=== PATIENT | female | born 1970 | race Caucasian/White ===

== ENCOUNTER 2018-08-19 19:54 | Emergency (ER) | payer BC, SELFPAY ==
[2018-08-19 20:03] VITALS: BP 141/94; PULSE 109; RESP 16; TEMP 37.1; O2SAT 99
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
[2018-08-19] MEDS: Lidocaine 5% Patch 1 PATCH TP (21:04)
--- NOTE | 2018-08-20 10:32 | PDOC.ERCMPRO ---
Care Management Progress Note 08/20/18-Pt seen with Right foot pain by Dr. Juliette Portillo. Request for Pt to establish a PCP has been faxed to [facility] as Dr. Jim was manager aviation.
== END 2018-08-19 21:00 | disposition home or self-care (01) ==
PROVIDERS: Emergency Provider Emergency Medicine
DX: M79.671 Pain in right foot (principal)
CPT/HCPCS: 99283; E0114

== ENCOUNTER 2019-01-13 21:25 | Emergency (ER) | payer BC, SELFPAY ==
[2019-01-13 21:31] VITALS: BP 133/86; PULSE 116; RESP 18; TEMP 36.3; O2SAT 98
--- NOTE | 2019-01-13 21:47 | W.ED.GENAD ---
Discharge Plan Disposition Patient Disposition: HOME Condition: Stable Discharge Details Chief Complaint: Orthopedic Clinical Impression: Contusion of left hip Primary Care Provider: None,None ED Provider: Kaveh Herrera Home Meds and New Rx's Prescriptions: New cyclobenzaprine 10 mg tablet 10 mg PO TID PRN (Reason: pain) Qty: 30 RF: 0 Discharge Instructions Instructions: Contusion in Adults (ED) Stand Alone Forms: Work Release Medical Decision Making 49 yo female who states she had a left hip replacement over 10 years ago who comes in after a slip and fall on ice while going from the parking lot at her work tonight. She did not hit her head or have loc per pt and has no headache, neck pain or n/v. She has no chest pain, sob, abd pain. She has no pain in the upper extremities per pt with full rom, she did have some left hand discomfort initially but has no pain now. She has pain in the left hip but does have full rom and is bearing weight. No midline back pain or saddle anesthesia. I suspect left hip contusion but will xray to eval for fx. Meets all criteria per [place] island[place] head rule and nexus to not image head or c spine at this time xray negative, has no other pain elsewhere at this time. Will d/c and advised f/u with pcp if pain continues and return precautions given Differential Diagnosis contusion, sprain, fx Imaging Data Radiologic Study: Attestation: I personally reviewed and interpreted this imaging study as follows: Imaging: X-Ray Radiologist's impression: no acute findings HPI General Mode of arrival: ambulatory. Date/Time Provider Initiated Documentation: 01/13/19 21:47. Limitations to Documentation: no limitations. Information obtained by: patient. History of Present Illness 49 year old F presents to the emergency department with the chief complaint of left hip pain s/p fall, described as moderate, with intensity rated at 5. Quality is described as aching, Patient reports no radiation. Patient started experiencing this hour(s) (1) and it has been constant. Patient notes no other symptoms.. Related Data Home Medications Medication Instructions Recorded Confirmed cyclobenzaprine 10 mg PO TID PRN #30 tab 01/13/19 Previous Rx's Medication Instructions Recorded cyclobenzaprine 10 mg PO TID PRN #30 tab 01/13/19 Allergies Allergy/AdvReac Type Severity Reaction Status Date / Time morphine AdvReac Intermediate Hives Unverified 01/13/19 21:31 Sulfa (Sulfonamide AdvReac Intermediate Hives Unverified 01/13/19 21:31 Antibiotics) General Stated Complaint: Orthopedic MANI: 4 Review of Systems Review of Systems All systems reviewed & are unremarkable except as noted in HPI and below Constitutional Denies chills and Denies fever(s) Cardiovascular Denies chest pain and Denies dyspnea Respiratory Denies cough and Denies dyspnea Gastrointestinal Denies abdominal pain, Denies nausea and Denies vomiting Integumentary/Breasts Denies rash Psychiatric Denies depression [facility] Surgical History Appendectomy (10/26/16) Arthroscopy Diagnostic Laproscopy PROCEDURES Repair of duodenal ulcer Total replacement of hip Vaginal hysterectomy Family History Maternal Uncle Colon cancer Social History Smoking and Tabacco status: Current every day Exam Const General: no acute distress Orientation: alert HENVT Head: normal to inspection Ears: external ears normal General nose exam: external nose normal Mouth: moist mucous membranes Eyes General: appearance normal, both eyes and all related structures Neck Neck: normal visual inspection Resp Effort & Inspection: normal respiratory effort and able to speak in complete sentences Cardio Rate: regular rate Skin General skin exam: no rashes or lesions noted Neuro General: alert and oriented x3 Extrem General: normal to inspection Psych Mental Status: mental status grossly normal Course Vital Signs Temperature 36.3 C L 01/13/19 21:31 Pulse 116 H 01/13/19 21:31 Respiratory Rate 18 01/13/19 21:31 Blood Pressure 133/86 01/13/19 21:31 Pulse Oximetry 98 01/13/19 21:31 Temperature 36.3 C L 01/13/19 21:31 Temperature Source Temporal Artery Scan 01/13/19 21:31 Pulse 116 H 01/13/19 21:31 Respiratory Rate 18 01/13/19 21:31 Respiratory Effort 01/13/19 21:31 Blood Pressure 133/86 01/13/19 21:31 Blood Pressure Position Sitting 01/13/19 21:31 Pulse Oximetry 98 01/13/19 21:31 Oxygen Delivery Method Room Air 01/13/19 21:31 Oxygen Flow Rate 0 01/13/19 21:31 Pain Level 7 01/13/19 21:31
[2019-01-13] MEDS: Acetaminophen 500 MG TAB 1000 MG PO (21:56)
--- NOTE | 2019-01-13 21:57 | ED.GENADUL_ITS ---
Discharge Plan Disposition Patient Disposition: HOME Condition: Stable Discharge Details Chief Complaint: Orthopedic Clinical Impression: Contusion of left hip Primary Care Provider: None,None ED Provider: Kaveh Herrera Home Meds and New Rx's Prescriptions: New cyclobenzaprine 10 mg tablet 10 mg PO TID PRN (Reason: pain) Qty: 30 RF: 0 Discharge Instructions Instructions: Contusion in Adults (ED) Stand Alone Forms: Work Release Medical Decision Making 49 yo female who states she had a left hip replacement over 10 years ago who comes in after a slip and fall on ice while going from the parking lot at her work tonight. She did not hit her head or have loc per pt and has no headache, neck pain or n/v. She has no chest pain, sob, abd pain. She has no pain in the upper extremities per pt with full rom, she did have some left hand discomfort initially but has no pain now. She has pain in the left hip but does have full rom and is bearing weight. No midline back pain or saddle anesthesia. I suspect left hip contusion but will xray to eval for fx. Meets all criteria per [place] head rule and nexus to not image head or c spine at this time xray negative, has no other pain elsewhere at this time. Will d/c and advised f/u with pcp if pain continues and return precautions given Differential Diagnosis contusion, sprain, fx Imaging Data Radiologic Study: Attestation: I personally reviewed and interpreted this imaging study as follows: Imaging: X-Ray Radiologist's impression: no acute findings HPI General Mode of arrival: ambulatory . Date/Time Provider Initiated Documentation: 01/13/19 21:47 . Limitations to Documentation: no limitations . Information obtained by: patient . History of Present Illness 49 year old F presents to the emergency department with the chief complaint of left hip pain s/p fall, described as moderate, with intensity rated at 5. Quality is described as aching, Patient reports no radiation. Patient started experiencing this hour(s) (1) and it has been constant. Patient notes no other symptoms.. Related Data Home Medications Medication Instructions Recorded Confirmed cyclobenzaprine 10 mg PO TID PRN #30 tab 01/13/19 Previous Rx's Medication Instructions Recorded cyclobenzaprine 10 mg PO TID PRN #30 tab 01/13/19 Allergies Allergy/AdvReac Type Severity Reaction Status Date / Time morphine AdvReac Intermediate Hives Unverified 01/13/19 21:31 Sulfa (Sulfonamide AdvReac Intermediate Hives Unverified 01/13/19 21:31 Antibiotics) General Stated Complaint: Orthopedic MANI: 4 Review of Systems Review of Systems All systems reviewed & are unremarkable except as noted in HPI and below Constitutional Denies chills and Denies fever(s) Cardiovascular Denies chest pain and Denies dyspnea Respiratory Denies cough and Denies dyspnea Gastrointestinal Denies abdominal pain, Denies nausea and Denies vomiting Integumentary/Breasts Denies rash Psychiatric Denies depression ON LICENSE OF [facility] Surgical History Appendectomy (10/26/16) Arthroscopy Diagnostic Laproscopy PROCEDURES Repair of duodenal ulcer Total replacement of hip Vaginal hysterectomy Family History Maternal Uncle Colon cancer Social History Smoking and Tabacco status: Current every day Exam Const General: no acute distress Orientation: alert HENOK Head: normal to inspection Ears: external ears normal General nose exam: external nose normal Mouth: moist mucous membranes Eyes General: appearance normal, both eyes and all related structures Neck Neck: normal visual inspection Resp Effort & Inspection: normal respiratory effort and able to speak in complete sentences Cardio Rate: regular rate Skin General skin exam: no rashes or lesions noted Neuro General: alert and oriented x3 Extrem General: normal to inspection Psych Mental Status: mental status grossly normal Course Vital Signs Temperature 36.3 C L 01/13/19 21:31 Pulse 116 H 01/13/19 21:31 Respiratory Rate 18 01/13/19 21:31 Blood Pressure 133/86 01/13/19 21:31 Pulse Oximetry 98 01/13/19 21:31 Temperature 36.3 C L 01/13/19 21:31 Temperature Source Temporal Artery Scan 01/13/19 21:31 Pulse 116 H 01/13/19 21:31 Respiratory Rate 18 01/13/19 21:31 Respiratory Effort 01/13/19 21:31 Blood Pressure 133/86 01/13/19 21:31 Blood Pressure Position Sitting 01/13/19 21:31 Pulse Oximetry 98 01/13/19 21:31 Oxygen Delivery Method Room Air 01/13/19 21:31 Oxygen Flow Rate 0 01/13/19 21:31 Pain Level 7 01/13/19 21:31
--- NOTE | 2019-01-13 22:15 | DI.RAD_ITS ---
SYMPTOM/DIAGNOSIS: PAIN, S/P FALL LEFT HIP AND PELVIS: No acute fracture or dislocation is seen. Note is made of a left total hip replacement which appears in good position. The soft tissues are unremarkable. IMPRESSION: No acute fracture or dislocation.
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
[2019-01-13] MEDS: Cyclobenzaprine 10 MG TAB (23:09)
== END 2019-01-13 23:10 | disposition home or self-care (01) ==
PROVIDERS: Emergency Provider Emergency Medicine
DX: S70.02XA Contusion of left hip, initial encounter (principal); W00.0XXA Fall on same level due to ice and snow, initial encounter; Z96.642 Presence of left artificial hip joint
CPT/HCPCS: 99283; 73502; 99282

== ENCOUNTER 2019-05-28 12:45 | Emergency (ER) | payer BC, SELFPAY ==
[2019-05-28 12:51] VITALS: BP 127/79; PULSE 109; RESP 16; TEMP 36.7; O2SAT 99
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
== END 2019-05-28 13:22 | disposition home or self-care (01) ==
LOC: ER 13:20
PROVIDERS: Emergency Provider Physician Assistant
DX: M25.571 Pain in right ankle and joints of right foot (principal); G89.29 Other chronic pain; V49.9XXS Car occupant (driver) (passenger) injured in unspecified traffic accident, sequela
CPT/HCPCS: 99282

== ENCOUNTER 2019-06-04 10:50 | Outpatient (CLI) | payer BC, SELFPAY ==
--- NOTE | 2019-06-04 10:48 | DI.RAD_ITS ---
SYMPTOM/DIAGNOSIS: PAIN RIGHT FOOT: Comparison is made with 14 April 2017 Again noted is severe calcaneal deformity and severe talocalcaneal degenerative changes. There are mild degenerative changes at the talonavicular and calcaneal cuboid joints as well as tarsal, metatarsal joints. IMPRESSION: Chronic severe deformity of the calcaneus.
== END 2019-06-04 11:10 ==
PROVIDERS: Visit Provider Orthopaedic Surgery
DX: M79.671 Pain in right foot (principal); Z87.81 Personal history of (healed) traumatic fracture; M19.071 Primary osteoarthritis, right ankle and foot
CPT/HCPCS: 73630

== ENCOUNTER 2019-06-04 11:38 | Outpatient (CLI) | payer BC, SELFPAY ==
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
== END 2019-06-04 11:58 ==
PROVIDERS: Visit Provider Physician Assistant
DX: M79.671 Pain in right foot (principal); Z87.81 Personal history of (healed) traumatic fracture; M19.071 Primary osteoarthritis, right ankle and foot
CPT/HCPCS: 73650